=== PATIENT | female | born 1965 | race African-American/Black ===

== ENCOUNTER → 2016-06-18 | Day surgery (SDC) | payer BC ==
[~2016-06-18] MED LIST: BENZONATATE PO; CHLORTHALIDONE25 MG PO; NORVASC10 MG PO; SINGULAIR PO; ZYRTEC10 M1 PO
--- NOTE | ~2016-06-18 | OR ---
Unit #: [id number] #: [id number] Patient: EVELYN KONG [id number] [address] [place], [place] [address] [id number] O MR#: [id number] NAME: EVELYN KONG ROOM: Date of Procedure: 06/18/2016 Admission Date: 06/18/2016 Surgeon: Timi Hooper M.D. : 1965 Attending Physician: Timi Hooper M.D. Primary Care Physician: Willow Torres M.D. OPERATIVE REPORT PREOPERATIVE DIAGNOSIS Colorectal cancer screening in an average-risk patient. PROCEDURES PERFORMED Colonoscopy and polypectomy. POSTOPERATIVE DIAGNOSES 1. Single sessile polyp in the mid descending colon. The latter was removed using snare polypectomy. The polyp was retrieved and sent for histology. 2. Scant sigmoid diverticulosis. 3. Rest of examination up to cecum and terminal ileum was normal. The quality of the prep was excellent. RECOMMENDATIONS 1. Follow up results of polyp histology. 2. Consider repeat examination of the colon in 5 years. SEDATION USED MAC. DESCRIPTION OF PROCEDURE Following detailed explanation of potential risks and complications of a colonoscopy, namely perforation, bleeding, and complications related to sedation, the patient was brought to GI lab and laid in left lateral decubitus position. A digital rectal examination was performed, which was normal. Lubricated tip of the Olympus video colonoscope was inserted through the anus and advanced under direct vision. The scope was advanced and passed up to sigmoid into descending colon. Scant small diverticula were noted in this area. The scope tip was then navigated all the way up to cecum with visualization of the ileocecal valve and the appendiceal orifice. Preparation was excellent with good visualization and photodocumentation was obtained. Last several inches of terminal ileum also visualized after intubation of the ileocecal valve and appeared normal. Successive segments of the colonic mucosa were examined upon withdrawal. Single small sessile polyp was noted in the mid descending colon. The latter was removed using snare polypectomy. The polyp was about 4 to 5 mm in size. It was retrieved and sent for histology. No additional polyps were noted. The patient had scant diverticula in the sigmoid colon. No hemorrhoids noted at the anal verge. The scope was then withdrawn. The patient returned to the recovery area. She tolerated the procedure without any postprocedure complications. Unit #: [id number] #: [id number] Patient: EVELYN KONG Dictated by... León Delgado/chase TD: 06/19/2016 01:27 JOB #: [id number] CC: Willow Torres M.D. OPERATIVE REPORT Page 1 of 1 X Timi Hooper MD X PROCEDURE OPERATIVE NOTE
== END | disposition home or self-care (01) ==
LOC: COPS 09:23
DX: Z12.11 Encounter for screening for malignant neoplasm of colon (principal); K63.5 Polyp of colon; K57.30 Diverticulosis of large intestine without perforation or abscess without bleeding; I10 Essential (primary) hypertension; F17.210 Nicotine dependence, cigarettes, uncomplicated; Z79.899 Other long term (current) drug therapy
CPT/HCPCS: 84703; 88305

== ENCOUNTER 2016-07-28 01:15 | Emergency (ER) | payer BC ==
--- NOTE | ~2016-07-28 | CT71 ---
[facility] RADIOLOGY TEXT RESULTS PATIENT: EVELYN KONG LOCATION: SED : 65 UNIT #: [id number] AGE: [address]: Yuri Rendon MD SEX: F ORDER DR: [id number] [place] [id number] E MR#: [id number] Acc #: [id number] NAME: EVELYN KONG : 1965 SEX: F STUDY DATE/TIME: 07/28/2016 02:41 UNIT: SED ROOM: STUDY DESCRIPTION: CT Head Wo Contrast Attending Physician: Yuri Rendon M.D. Ordering Physician: Yuri Rendon M.D. Primary Care Physician: Willow Torres M.D. MEDICAL IMAGING REPORT This report is preliminary unless electronic signature is present. EXAM Head CT 07/28/2016 02:41 INDICATION Patient's left eye will not blink. Symptoms started tonight. Patient also has headache that is 5/10. History of hypertension. COMPARISON None. TECHNIQUE This CT examination was performed with one or more of the following radiation dose reduction techniques: automatic exposure control, adjustment of mA and/or kV according to patient size, and iterative reconstruction. FINDINGS Axial noncontrast images were obtained from the skull base to the vertex. Ventricular size and configuration are normal. There is no evidence of acute infarct or hemorrhage. There are no extraaxial fluid collections. No mass lesion or mass effect is seen. There are no skull fractures. IMPRESSION Normal noncontrast head CT. Dictated by... Christopher Carmona Jr., M.D. THIS IS AN ELECTRONICALLY VERIFIED REPORT Christopher Carmona Jr., M.D. at 07/28/2016 9:14 PM RLK/tserings [facility] RADIOLOGY TEXT RESULTS PATIENT: EVELYN KONG LOCATION: SED : 65 UNIT #: [id number] AGE: [address]: Yuri Rendon MD SEX: F ORDER DR: TD: 07/28/2016 10:56 JOB #: [id number] MEDICAL IMAGING REPORT Page 1 of 1
--- NOTE | ~2016-07-28 | EKG ---
PATIENT: EVELYN KONG UNIT #: [id number] Ventricular Rate: 98 BPM Atrial Rate: 98 BPM P-R Interval: 156 ms QRS Duration: 82 ms Q-T Interval: 348 ms QTC Calculation(Bezet): 444 ms P Hardy: 52 degrees Calculated R Hardy: 41 degrees Calculated T Hardy: 13 degrees Diagnosis Line: Normal sinus rhythm Diagnosis Line: Possible Left atrial enlargement Diagnosis Line: Cannot rule out Anterior infarct , age Diagnosis Line: undetermined Diagnosis Line: T wave abnormality, consider inferior ischemia Diagnosis Line: Abnormal ECG Diagnosis Line: No previous ECGs available Diagnosis Line: Confirmed by JAMAR GARCIA MD ([id number]) on Diagnosis Line: 07/31/2016 1:25:51 PM INTERPRETING MD: JOSE ROSAS
[2016-07-28 02:07] LABS: BASOPHIL# 0.1 X10e3 (0-0.3); BASOPHIL% 0.8 % (0-2.5); EOSINOPHIL# 0.3 X10e3 (0-0.7); EOSINOPHIL% 2.9 % (0.0-7.0); HEMATOCRIT 39.1 % (35.0-45.0); HEMOGLOBIN 13.3 gm/dL (12.0-16.0); LYMPHOCYTE# 2.6 X10e3 (1.0-3.5); LYMPHOCYTE% 30.1 % (17.0-45.0); MEAN CELL VOLUME 88.1 FL (83-96); MEAN CORPUSCULAR HEMOGLOBIN 29.9 PG (28-34); MEAN CORPUSCULAR HGB CONC 33.9 g/dL (30-36); MEAN PLATELET VOLUME 6.4 FL (6.5-11.5); MONOCYTE# 1.2 X10e3 (0-1.0); MONOCYTE% 14.2 % (3.0-12.0); NEUTROPHIL# 4.5 X10e3 (1.5-7.1); PLATELET COUNT 460 X10e3 (140-420); RED BLOOD COUNT 4.44 X10e (3.90-5.30); RED CELL DISTRIBUTION WIDTH 13.1 % (11.0-15.5); WHITE BLOOD COUNT 8.7 X10e3 (4.0-10.5)
[2016-07-28 02:10] LABS: DIFF IND NO
[2016-07-28 02:27] LABS: URINE SOURCE CLEAN CATCH
[2016-07-28 02:32] LABS: URINE APPEARANCE CLEAR; URINE BILIRUBIN NEG (NEG); URINE BLOOD 2+ (NEG); URINE COLOR YELLOW; URINE GLUCOSE NEG (NORM); URINE KETONE NEG (NEG); URINE LEUKOCYTE ESTERASE NEG (NEG); URINE NITRATE NEG (NEG); URINE PH 6.5 (5-8); URINE PROTEIN NEG (NEG)
[2016-07-28 02:34] LABS: ALBUMIN SERUM 4.4 g/dL (3.5-5.0); BILIRUBIN,TOTAL 0.7 mg/dL (0.2-2.0); BUN/CREATININE RATIO 13.63; CALCIUM SERUM 9.5 mg/dL (8.4-10.2); CREATININE SERUM 1.1 mg/dL (0.6-1.4); GLOM FILT RATE Estimated 67.8 mL/min (>60); PROTEIN TOTAL SERUM 8.6 g/dL (6.0-8.3)
[2016-07-28 02:35] LABS: POTASSIUM 2.7 mmol/L (3.5-5.1)
[2016-07-28 02:39] LABS: MICRO INDICATED? YES
[2016-07-28 02:40] LABS: AMPHETAMINE NEG (NEG); BARBITURATES NEG (NEG); BENZODIAZEPINES NEG (NEG); COCAINE NEG (NEG); CULTURE INDICATED? NO; MARIJUANA NEG (NEG); OPIATES NEG (NEG); TRICYCLIC ANTIDEPRESSANTS NEG (NEG); U METHADONE NEG (NEG); URINE BACTERIA NEG (NEG); URINE SQUAMOUS EPITHELIAL CELL OCCAS /[HPF]
[2016-07-28 02:46] LABS: INR 1.1; PROTHROMBIN TIME (PATIENT) 12.8 SECONDS (9.5-12.4)
[2016-07-28 02:53] LABS: PARTIAL THROMBOPLASTIN TIME 30.9 SECONDS (25.6-38.1)
== END 2016-07-28 05:02 | disposition home or self-care (01) ==
LOC: SED 01:15
DX: G51.0 Bell's palsy (principal); I10 Essential (primary) hypertension; Z79.899 Other long term (current) drug therapy
CPT/HCPCS: 36415; 70450; 80053; 80307; 81003; 85025; 85610; 85730; 93005; 99284

== ENCOUNTER → 2016-08-09 | Outpatient (CLI) | payer BC | END | disposition home or self-care (01) | LOC: CECH 13:12 | DX: I51.89 Other ill-defined heart diseases (principal) | CPT/HCPCS: 93306 ==